=== PATIENT | female | born 2000 | race Caucasian/White ===

== ENCOUNTER 2023-11-15 10:54 | Emergency (ER) | payer OTHER ==
[~2023-11-15] VITALS: Ht 170.2 cm; Wt 70.0 kg
[2023-11-15] MEDS ORDERED: ACETAMINOPHEN 500 MG TAB PO ONE (11:45)
[2023-11-15] MEDS ORDERED: IBUPROFEN 600 MG TAB PO ONE (11:45)
[2023-11-15 11:56] LABS: BASOPHILS 0.3 % (0-2); EOSINOPHILS 1.1 % (0-6); HEMATOCRIT 37.5 % (35.0-50.0); LYMPHOCYTES 28.5 % (24-44); MCH 31.5 (27-36); MCHC 34.7 g/dl (30-36); MCV 90.7 fl (81-99); MONOCYTES 4.2 % (0-12); NEUTROPHILS 65.9 % (39-80); PLATELET COUNT 253 K/uL (140-440); RBC 4.14 M/ul (4.3-5.7)
[2023-11-15 12:11] LABS: ALBUMIN 3.9 g/dL (3.4-5.0); ALBUMIN/GLOBULIN RATIO 1.26 (1.1-2.4); ANION GAP 11.8 (7-21); BILIRUBIN, TOTAL 1.4 ng/dL (0.2-1.0); BUN/CREATININE RATIO 11.94 (6.0-28.6); CALCIUM 8.7 mg/dL (8.5-10.1); CREATININE, SERUM 0.67 mg/dL (0.55-1.02); POTASSIUM 3.8 mmol/L (3.5-5.1)
--- OUTSIDE RECORDS SUMMARY | 2023-11-15 12:32 | XMS ---
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 E.Millie. VISIT COUNT (12 MO.) 2 [facility] (Nicola Petersen) [address] [place] [address] TOTAL 3 NOTE: Visits indicate total known visits. ED/UCC VISIT TRACKING (12 MO.) 11/15/2023 10:55 KELLE Turcios TYPE: Emergency COMPLAINT: - R ARM HOT, SWOLLEN PAIN 10/20/2023 06:55 [facility] Nicola GARG (Nicola Petersen) TYPE: Emergency DIAGNOSES: - Cough, unspecified - Shortness of Breath - sob 03/08/2023 15:50 [facility]ola [facility] (Nicola Petersen) TYPE: Emergency DIAGNOSES: - Bacterial infection, unspecified - Cholesterolosis of gallbladder - Unspecified abdominal pain - Urinary tract infection, site not specified - abd pain - Abdominal Pain INPATIENT VISIT TRACKING (12 MO.) No inpatient visits to display in this time frame [email or web address]
[2023-11-15 13:13] VITALS: BP 111/90
== END 2023-11-15 13:15 | disposition home or self-care (01) ==
LOC: ED 10:54
PROVIDERS: Emergency Medicine
DX: M79.631 Pain in right forearm (principal); Z88.5 Allergy status to narcotic agent; Z88.8 Allergy status to other drugs, medicaments and biological substances
CPT/HCPCS: 36415; 80053; 85025; 85651; 86140; 99283; A9270